=== PATIENT | male | born 1980 | race Caucasian/White ===

== ENCOUNTER 2021-05-20 12:46 | Emergency (ER) | payer BC, OTHER ==
[~2021-05-20] VITALS: Ht 178 cm; Wt 95.0 kg
[~2021-05-20 12:46] MED LIST: MULT1TAB63; OMG1KC
--- NOTE | 2021-05-20 13:26 | ED Cough/URI ---
General Chief Complaint: Fever-Adult/Adol Stated Complaint: CONGESTION,BODY ACHES,FATIGUE Source: patient Exam Limitations: no limitations (FLO GOLDMAN STUDENT) History of Present Illness Date Seen by Provider: May 20, 2021 Time Seen by Provider: 13:10 Initial Comments Naif is a 40 yo M who presents today for URI. Since last week he complains of fever, chills, muscle aches, malaise, and congestion. He was seen at the [facility] and prescribed augmentin for his middle ear/sinus infection. Since he has not felt any better and remains congested with associated fevers and weakness. He has tried nyquil, B12, and elderberry for his symptoms which have not helped his symptoms. (FLO GOLDMAN STUDENT) Allergies and Home Medications Allergies Coded Allergies: No Known Drug Allergies (Verified Allergy, Unknown, 11/02/07) Patient Home Medication List Home Medication List Reviewed: Yes (NORMA NOGUERA) Multivitamins (Vitamins (Multi-Vit)) 1 Ea Tablet, (Reported) Entered as Reported by: ERICH ORNELAS on 11/02/07 0234 [place] 3 Polyunsat Fatty Acids (Fish Oil) 1,000 Mg Cap, (Reported) Entered as Reported by: ERICH RODRÍGUEZTREET on 11/02/07 0234 Review of Systems Review of Systems Constitutional: chills, fever, malaise, weakness EENTM: ear pain, nose congestion; No blurred vision, No double vision Respiratory: cough, phlegm Cardiovascular: No chest pain, No palpitations Gastrointestinal: No abdominal pain, No constipation, No diarrhea Genitourinary: No dysuria, No frequency Musculoskeletal: muscle pain, muscle cramps Skin: No change in color, No change in hair/nails Psychiatric/Neurological: Denies Anxiety, Denies Depressed (FLO GOLDMAN STUDENT) All Other Systems Reviewed Negative Unless Noted: Yes (NORMA NOGUERA) Past Sgaigrb-Hardcs-Kumlei Hx Patient Social History Tobacco Use?: No Substance use?: No Alcohol Use?: Yes Alcohol type: Hard Liquor Alcohol Frequency: Once in a while Pt feels they are or have been: No (FLO GOLDMAN STUDENT) Tobacco Use?: No Use of E-Cig and/or Vaping dev: No (NORMA NOGUERA) Immunizations Up To Date Influenza Vaccine Up-to-Date: Yes; Up-to-Date First/Initial COVID19 Vaccinat: 2020 Second COVID19 Vaccination Reza: 2020 COVID19 Vaccine 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 oz. kg; BMI Method: General Appearance: WD/WN, no apparent distress Eyes: Bilateral Eye Normal Inspection HEENT: PERRL/EOMI, normal ENT inspection, TM abnormal (R) (fluid behind TM), TM abnormal (L) (Fluid behind TM) Neck: non-tender, full range of motion, supple, normal inspection Respiratory: chest non-tender, lungs clear, normal breath sounds, no respiratory distress, no accessory muscle use Cardiovascular: regular rate, rhythm, no edema, no gallop, no JVD, no murmur Gastrointestinal: normal bowel sounds, non tender, soft, no organomegaly, no pulsatile mass Extremities: normal range of motion, non-tender, normal inspection, no pedal edema, no calf tenderness Neurologic/Psychiatric: no motor/sensory deficits, alert, normal mood/affect, oriented x 3 Skin: normal color, warm/dry (JONESFLO [employer]ium) Progress/Results/Core Measures Suspected Sepsis SIRS Temperature: Pulse: Respiratory Rate: Blood Pressure / Mean: (Eventstagr.amRedicam) Results/Orders Vital Signs/I&O 05/20/21 13:03 Temp 36.8 Pulse 91 Resp 20 B/P (MAP) 163/99 (120) Pulse Ox 100 O2 Delivery Room Air (NORMA NOGUERA) Vital Signs/I&O Capillary Refill : (JONESRedicam) Progress Note : Time: 13:43 Progress Note I attest that I 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 Patient has aseptic vital signs. He has an occasional productive cough which is likely related to a bronchitis. He is already on Augmentin which would be appropriate care for sinusitis, otitis media and first-line treatment for pneumonia. Will provide him with a dose of azithromycin if he is not seeing some improvement in the next 3 to 4 days or if his symptoms worsen and have him follow-up with his primary care provider. We will also give him instructions to start nasal steroids to help drain his otitis media effusions bilaterally and decongestants. (NORMA NOGUERA) Departure Impression Primary Impression: Upper respiratory infection Qualified Codes: J06.9 - Acute upper respiratory infection, unspecified Additional Impression: Acute otitis media with effusion of both ears Disposition: HOME, SELF-CARE Condition: Stable Departure-Patient Inst. Decision time for Depature: 13:45 (NORMA NOGUERA) Referrals: NO,LOCAL PHYSICIAN (PCP/Family) Primary Care Physician Patient Instructions: Viral Upper Respiratory Infection, Adult (DC) Add. Discharge Instructions: I suspect you have a viral upper respiratory tract infection leading to your bronchitis and cough. It started out viral and then he developed a bacterial infection in your ear which is resolving with the antibiotics. The fact that the antibiotics are not helping with your cough indicates that this is likely due to a virus and needs more time. Humidifiers and vapor rubs can be very helpful. Decongestant such as chlorpheniramine 4 mg every 4 hours, Sudafed or phenylephrine as is found in DayQuil and NyQuil will help reduce congestion in your nose as well as how much mucus is produced. Afrin 1 puff each nostril every 4 hours as needed for congestion can also be used. You have a mucus effusion in your ears that needs drained. Fluticasone/Flonase 1 puff each nostril twice a day for 2 weeks should help open up the eustachian tubes you can clear your ears. If after finishing the antibiotics your cough becomes more productive, you develop high fevers or other worrisome symptoms then you can start azithromycin, 2 tablets at first followed by 1 tablet every day and make an appointment to follow-up with your PCP. If you have severe chest pain, shortness of air or oxygen saturations consistently below 90% on room air while at rest then I would suggest you return to the nearest ER. All discharge instructions reviewed with patient and/or family. Voiced understanding. Scripts Fluticasone Propionate (Flonase Allergy Relief) 9.9 Ml [place].susp 2 SPRAY NS BID for 14 Days, #1 EACH 0 Refills 2 SPRAYS PER NOSTRIL DAILY X 2 DAYS THEN 1 SPRAY DAILY Prov: NORMA NOGUERA 05/20/21 Azithromycin (Azithromycin) 250 Mg Tablet 250 MG PO UD, #6 TAB 0 Refills TAKE 2 TABLETS ON DAY ONE THEN TAKE 1 TABLET DAILY FOR FOUR MORE DAYS Prov: NORMA NOGUERA 05/20/21 Work/School Note: Work Release Form Date Seen in the Emergency Department: May 20, 2021 Return to Work: May 21, 2021 Restrictions: No Restrictions FLO GOLDMAN MED STUDENT May 20, 2021 13:26 NORMA NOGUERA May 20, 2021 13:50
[2021-05-20] MEDS ORDERED: FLUT9.9S NS (13:51)
[2021-05-20] MEDS ORDERED: AZIT250T12 PO (13:51)
[2021-05-20 14:10] VITALS: BP 134/100
== END 2021-05-20 14:14 | disposition home or self-care (01) ==
LOC: EDUNIT# 12:46 → ER 12:48
DX: J06.9 Acute upper respiratory infection, unspecified (principal); H65.193 Other acute nonsuppurative otitis media, bilateral
CPT/HCPCS: 99283